=== PATIENT | male | born 1935 | race Caucasian/White ===

== ENCOUNTER → 2017-01-25 | Day surgery (SDC) | payer MEDICARE, OTHER ==
[~2017-01-25] MED LIST: ACETAMINOPHEN325 MG PO; CIPRO500 MG PO; DYMISTA NASAL S23 GM NS; FLOMAX0.4 MG PO; LYRICA100 MG PO; NORCO 7.5-3251 EACH PO; NORVASC5 MG PO; PRAVACHOL40 MG PO; PROSCAR5 MG PO; SPIRIVA18 MCG IH; TRAZODONE HCL100 MG PO; VENTOLIN HFA8 GM IH
== END | disposition home or self-care (01) ==
LOC: SDC 07:22
DX: N20.0 Calculus of kidney (principal); I10 Essential (primary) hypertension; N40.0 Benign prostatic hyperplasia without lower urinary tract symptoms; J44.9 Chronic obstructive pulmonary disease, unspecified; M19.90 Unspecified osteoarthritis, unspecified site; G89.29 Other chronic pain; Z85.038 Personal history of other malignant neoplasm of large intestine; Z79.899 Other long term (current) drug therapy; Z85.118 Personal history of other malignant neoplasm of bronchus and lung; Z90.49 Acquired absence of other specified parts of digestive tract; Z96.651 Presence of right artificial knee joint
CPT/HCPCS: C1758; J2704; Q9967